=== PATIENT | female | born 1985 | race Hispanic/Latino ===

== ENCOUNTER 2023-12-31 09:38 | Emergency (ER) | payer OTHER, SELFPAY ==
[2023-12-31 10:02] VITALS: BP 115/76; PULSE 67; RESP 18; TEMP 36.4; O2SAT 100; BMI 34.1
--- NOTE | 2023-12-31 12:10 | ED.UPPEXIN ---
HPI - Extremity Injury (Upper) General Chief Complaint: Extremity Injury, Upper Stated Complaint: Left index finger injury Time Seen by Provider: 12/31/23 11:35 Source: patient Mode of arrival: Ambulatory History of Present Illness HPI narrative: 38-year-old female nonsmoker with noncontributory medical history presents with her daughter and a chief complaint of an accidental laceration to the knuckle of her left index finger yesterday. She was using a sharp knife and cutting vinyl morteza when it slipped and cut her knuckle. She cleaned it immediately and was able to briefly control bleeding but it started again prior to her arrival, she wrapped it and came in for further evaluation. She states her tetanus is up-to-date. She denies any numbness, tingling or weakness. She is otherwise well and free of complaint Related Data Allergies Allergy/AdvReac Type Severity Reaction Status Date / Time nickel Allergy Hives Verified 12/31/23 10:06 Review of Systems Review of Systems Narrative: GENERAL: Denies chills, fatigue, malaise, fever, sweats. HEENT: Denies sinus pain, ear pain, sore throat, difficulty swallowing, dizziness. RESPIRATORY: Denies dyspnea, cough, wheezing, hemoptysis, sputum. CARDIOVASCULAR: Denies chest pain, palpitations, orthopnea, edema, GASTROINTESTINAL: Denies nausea, vomiting, abdominal pain, diarrhea, constipation, melena. : Denies dysuria, frequency, incontinence, hematuria, urinary retention. MUSCULOSKELETAL: See HPI SKIN: Denies rash, skin lesions, or other NEUROLOGIC: Denies weakness, headache, numbness, change in speech, confusion, seizures, incoordination. PSYCHIATRIC: No concerning psychosocial issues. 12 point review of systems is negative except for those stated above Patient History Social History Smoking Status: Current every day smoker Smoking Status: Current every day smoker tobacco type: cigarettes Substance Use Type: does not use Exam Narrative Exam Narrative: GEN: AOx3 and in mild distress EYES: Pupils are equal, round, and reactive to light and accommodation. Extraoccular muscles are intact bilaterally. There is no subconjunctival hemorrhage or exudate. CHEST: Lungs are clear to auscultation bilaterally and free of wheezes, rales, or rhonchi. Heart rate is regular rhythm, there are no murmurs, clicks, rubs, or gallops. There is no chest wall tenderness. ABD: Abdomen is soft and nontender. There is no guarding or rebound. Bowel sounds are normal in all 4 quadrants. There is no mass or organomegaly. EXT: Small laceration on dorsal aspect of left index finger over the proximal interphalangeal joint, no active bleeding, even with force I am unable to separate the wound, no indication for repair at this time. Full painless ROM of all extremities with no loss of sensation or strength. SKIN: Warm, pink, and dry. No erythema or rash Initial Vital Signs Initial Vital Signs: Vital Signs Temperature 97.6 F 12/31/23 10:02 Pulse Rate 67 12/31/23 10:02 Respiratory Rate 18 12/31/23 10:02 Blood Pressure 115/76 12/31/23 10:02 Pulse Oximetry 100 12/31/23 10:02 Oxygen Delivery Method Room Air 12/31/23 10:02 Course Vital Signs Vital signs: Vital Signs - 8 hr 12/31/23 10:02 Temperature 97.6 F Pulse Rate 67 Respiratory Rate 18 Blood Pressure 115/76 Pulse Oximetry 100 Oxygen Delivery Method Room Air MDM - Extremity Injury (Upper) MDM Narrative Medical decision making narrative: [38 year old patient presents with 24 hour old laceration to left index finger, bleeding controlled Multiple etiologies for patient's symptoms considered including, but not limited to: [Laceration versus other] Prior Charts reviewed in our EMR Primary Historian: patient Labs not indicated Imaging considered but not indicated Patient received wound care from nursing and was placed in tube gauze. We discussed the utility of digital block with sutures but given that the wound is already healing, no longer bleeding and I am unable to spread the lacerated edges we elected to hold off for now. Findings and discharge diagnosis discussed with patient/family followed by verbalization of understanding Return precautions discussed with patient/family whom verbalize understanding of diagnosis and plan Discharge Plan Departure Patient Disposition: Home Clinical Impression: Laceration of left index finger Qualifiers: Encounter type: initial encounter Damage to nail status: without damage Foreign body presence: without foreign body Qualified Code(s): S61.211A - Laceration without foreign body of left index finger without damage to nail, initial encounter Instructions: DI for Open Laceration Activity Restrictions/Additional Instructions: *You have been diagnosed with [ left index finger laceration] *What to do: *Please continue to take your regular medications as directed. [ ] New medication prescriptions sent to your pharmacy: [ ] [ ] New medication written as a paper prescription [ ] No new medications given *Please follow up with your primary care provider in 2-3 days, call for an appointment. Let them know you were seen in the Emergency Department and that we ask that you be seen in follow up. We will electronically transmit a record of today's note if your PCP is in our system *If you do not have a primary care provider please contact the [facility] Resource line at [phone]. They will ask some questions about your medical history and help get you set up with a doctor in the community. *Return to Emergency Department if you should have any new, worsening or concerning symptoms, such as [fever greater than 101 F, shaking chills, worsening pain, persistent vomiting or other bothersome symptoms] Stand Alone Forms: Patient Portal/API
== END 2023-12-31 12:45 | disposition home or self-care (01) ==
PROVIDERS: Emergency Provider Emergency Medicine
DX: S61.211A Laceration without foreign body of left index finger without damage to nail, initial encounter (principal); W26.0XXA Contact with knife, initial encounter
CPT/HCPCS: 99282

== ENCOUNTER → 2024-06-06 10:02 | Outpatient (CLI) | payer OTHER, SELFPAY | PROVIDERS: Family Provider Nurse Practitioner Family; PCP Nurse Practitioner Family; Visit Provider Urology | DX: R39.9 Unspecified symptoms and signs involving the genitourinary system (principal) | CPT/HCPCS: 87086 ==

== ENCOUNTER 2024-08-06 12:15 | Outpatient (RCR) | payer OTHER, SELFPAY ==
--- NOTE | 2024-05-06 18:38 | PT.OIE ---
Current Diagnoses Pain in right hip (05/06/24) Stiffness of unspecified hip, not elsewhere classified (05/06/24) Overactive bladder (05/06/24) Mixed incontinence (05/06/24) Visit Care Team Role Provider Type ANAM Urias Attending Provider Non-Staff Family Provider Primary Care Provider Referring Provider Specialty: Family Practice Address: [address] [place] [address], [place], [address] Email: Physical Therapy Initial Evaluation PT-OP-A Visit Information Start: 04/30/24 18:31 Freq: Status: Active Protocol: Document 05/06/24 09:47 LRN (Rec: 05/06/24 11:28 LRN [id number]) Out-Patient Physical Therapy Visit Information Visit Information Visit Type Initial Evaluation Visit Start Time 09:47 Visit Stop Time 10:36 Visit Number 1 Evaluation Information Evaluation Date 05/06/24 Precautions Precautions Currently reported to be 11 wk , depression, thyroid disorder. PT-OP-B Current Condition Start: 04/30/24 18:31 Freq: Status: Active Protocol: Document 05/06/24 09:47 LRN (Rec: 05/06/24 11:28 LRN [id number]) Current Condition History of Current Condition Onset Date 12 yrs ago. Current Complaints Overactive ex's and mixed incontinence. History of Current Condition Pt reports currently 11 wks . States she has had diagnosis of overactive bladder for 12 yrs. In was prescribed medicine for UTI, but never told she had and overactvie bladder, so symptoms of UTI never went away. Pt retired from the in 2011. Last year she learned about urology and received treatment from urology clinic that gave her strategies and physical therapy from Aug to September of 2023 in [place] and learned she had mixed urinary incontinence. She moved to [place], [place] in November 2023 with spouse who is in the . She reports being given ex's and handouts, and was taught rocking of body to relax her PF and did biofeedback with pads. States she was given a TNS unit, that was all lost in her move along with all her ex's and handouts. States, if recommended, then she will get a new TNS unit. States she knows her pelvic floor R side was more sensitive than the L side. She has been worried because in the last 2 months she has been waking with dampness and has smell of urine in her underwear. She has urinary leakage with a cough sneeze, sit<>stand, and with a strong urge. She complains of intermittent pain in her R anterior hip. Prior Treatments and Tests Kegel ex's, bridge with Kegels and open wall stretches. Uses pressure points, in lower leg and hand to help control her urinary urges. Developmental History Developmental History 1 daughter - 9 yrs old, vaginal . Treatment Goals Patient/Caregiver Goals Pt goals: - 2 hrs between voids - Decrease urinary leakage Cough, sneeze. - Be able to make it to bathroom with strong urge. - HEP Personal Factors Other Personal Factors That May Effect Chronicity of overactive Therapy/Recovery bladder, Pt reported PTSD, Pt reported 11 wks , Depression, Thyroid disorder. PT-OP-C Subjective Start: 04/30/24 18:31 Freq: Status: Active Protocol: Document 05/06/24 09:47 LRN (Rec: 05/06/24 11:28 LR [id number]) Patient Questionnaires Pelvic Pain and Urgency/Frequency Patient Symptom Scale Pelvic Pain Score 21 OP-PT Pain Assessment Pain Assessment Grid Paper Pain Assessment Grid Completed Yes Location R front of hip Pain Location Details residual cramping after intercourse, with period, intermittent Intensity 4 Scale Used Numeric (0 - 10) Description Aching,Dull Frequency Intermittent Pain Duration Short PT-OP-I Pelvic Floor Start: 04/30/24 18:31 Freq: Status: Active Protocol: Document 05/06/24 09:47 LRN (Rec: 05/06/24 11:28 LRN [id number]) Pelvic Floor Assessment Urine Leakage Cause Cough,Sneeze,Urge Leaks Per Day unknown Voiding Frequency unknown Bowel Bowel Movement Frequency 2-3/day Comments Pelvic Floor Comments Physical assessment of PF not performed due to of 11 weeks. PT-OP-J Posture/Palpation/Skin Start: 04/30/24 18:31 Freq: Status: Active Protocol: Document 05/06/24 09:47 LRN (Rec: 05/06/24 11:28 LRN [id number]) Posture Evaluation Position Standing Head/C-Spine Posture Forward Head L-Spine Posture Increased Lordosis Knee Posture (L) Genu Valgus,(R) Genu Valgus Ankle/Foot Posture (L) Calcaneal Eversion,(R) Calcaneal Eversion Comments Posture Comments Dowagers Hump. PT-OP-K Range of Motion Start: 04/30/24 18:31 Freq: Status: Active Protocol: Document 05/06/24 09:47 LRN (Rec: 05/06/24 11:28 LRN [id number]) Lumbar Spine Range of Motion Lumbar Spine Active Degrees Testing Position Standing Flexion 120 Extension 20 Rotation Left 45 Rotation Right 45 Lateral Flexion Left 25 Lateral Flexion Right 17 ROM Limitations Soft Tissue Tightness Hip Goniometric Range of Motion Hip Right Passive Testing Position Supine Abduction 40 Internal Rotation 35 External Rotation 75 Left Passive Testing Position Supine Abduction 40 Internal Rotation 45 External Rotation 65 PT-OP-M Strength Start: 04/30/24 18:31 Freq: Status: Active Protocol: Document 05/06/24 09:47 LRN (Rec: 05/06/24 11:28 LRN [id number]) Trunk Strength Trunk Manual Muscle Testing Core Stabilization Pt was able to stabilize her core with MMT of hip for flex, AB, AD; therefore core stability is good (minimally 4 /5). Pt demonstarted getting out of bed by a sit-up type motion with use of arms to help push into longsit. Hip Strength Hip Manual Muscle Testing Right Comments Strength is 5/5 except hip ext in prone not assessed due to pt condition. Left Comments Strength is 5/5 except hip ext in prone not assessed due to pt condition. PT-OP-Q Treatments Start: 04/30/24 18:31 Freq: Status: Active Protocol: Document 05/06/24 09:47 LRN (Rec: 05/06/24 11:28 LRN [id number]) Therapeutic Activity Therapeutic Activity Urge suppression trng Name Urge deference technique trn for urge supression in sup, sit,briefly stand. Reps/Minutes 4' Comments Pt needed much cuing to remain calm. Not sure if pt able to deep breath properly. Self-Care/Home Management Treatment Education Other Education Discussed results of evaluation, extended discussion of goals as appropriate for being 11 weeks , treatment, and plan of care (POC) with pt, discussed attendance/cx/dns policy; pt agreeable to evaluation, goals, treatment, attendance/cx/dns policy and POC. Discussed and educated pt in specifics for completion of in use of Bladder Diary and I/S in tracking for 1 week. Activities Self-Care/Home Management Activities Issued & reviewed self care HEP: Urge deference technique . PT-OP-T Assessment and Plan Start: 04/30/24 18:31 Freq: Status: Active Protocol: Document 05/06/24 09:47 LRN (Rec: 05/06/24 11:28 LRN [id number]) Physical Therapy Assessment Rehab Potential Rehabilitation Potential Fair Evaluation Complexity Number of Personal Factors/Comorbidities 0 Impairments Impairments Activity Tolerance Goals Four Impairment Decreased times between voids (voiding every hour or less). Short Term Goal (STG) Pt will be able to increase her fluid intake to decrease need to void frequently. STG Duration 06/28/24 Residential Goal (LTG) Pt will be able to increase time between voids to 2 hrs LTG Duration 08/16/24 Three Impairment Stress urinary incontinence. Short Term Goal (STG) Pt will be educated in PF strengthening with progressing limitations. STG Duration 06/28/24 Needle Loom Weaver Goal (LTG) Improve PF strength to decrease or eliminate urinary leakage with a cough or sneeze . LTG Duration 08/16/24 Two Impairment Urge urinary incontinence Short Term Goal (STG) Pt will be able to perform deep breathing properly for downtraining of sympathetic system with a strong urge. STG Duration 06/07/24 Residential Goal (LTG) Pt will be able to make it to bathroom in the presence of a strong urge. LTG Duration 08/16/24 One Impairment Pt lacks an independent self care HEP. Short Term Goal (STG) Pt educated in proper transfers to lessen core abdominal pressure. STG Duration 06/07/24 Residential Goal (LTG) Pt will be independent in a self care HEP for PF care, PF/ Hip ROM (PF w/gentle reverse Kegel for relaxation after contraction) ROM/strengthening . 05/06/24: Self care HEP: Urge deference technique. LTG Duration 08/16/24 Assessment Summary Assessment Pt is a 38 yo female with 12 yr history of overactive bladder and additionally diagnosed with mixed urinary incontinence in abscence of bowel dysfunction. She presents with decreasd L hip IR/trunk R SB mobility and decreased knowledge of a self care HEP and will need education in behavioral modification to urge and stress on her bladder. With pt 11 weeks , PF exam internally will not be performed due to the pt being 11 wks . Today, with onset of sudden urge, external PF exam was not performed as education of urge delay technique was important to start the pt on a self care activity at home. Further PF assessment will be performed at her next session along with education and training for PF relaxation/contraction as can be performed with manual and self manual feedback. The pt will benefit from skilled physical therapy of pt education, behavior education/ training and coordination of deep breathing and transfers/ exercise, therapeutic ex, transfer training, manual therapy for R lower abdominal pain possibly related to the round ligament, core stab, STM , education in pain mgmt with use of cold pack, and education in positioning (bed, sit, stand). Physical Therapy Plan Frequency and Duration Frequency of Treatment 1x/Week Duration of treatment (weeks) 14 Plan of Care Start Date 05/06/24 Plan of Care End Date 08/16/24 Therapeutic Interventions Therapeutic Interventions Home Exercise Program,Manual Therapy,Neuromuscular Re- education,Self-Care/Home Management,Soft Tissue Mobilization,Therapeutic Activities,Therapeutic Exercises Modalities Cold Pack/Ice Massage Next Visit Focus/Plan Next Note Type Treatment Note Next Visit Plan Next: Further assess urinary leakage, and visual assess of PF. Review bladder/bowel diary, & response to pt education in bladder retraining with urge deference technique. Education: Core pressure management, deep breathing, and proper coordinated breathing with transfers and body mechanics. Ther Ex: Kegel/?Reverse Kegel if PF tightness noted, PF/ core strengthening, improve hip R IR, L ER and trunk R SB mobility. Educate/discuss water intake, educate & discuss proper sit to stand, and moving in bed ( log roll) using breathwork and core/PF stabilization for proper abdominal pressure system, STM (round lig) of abdomen. POC: Pt education , self care management, manual therapy, biofeedback with external sensors (LB/PF), therapeutic exercises, therapeutic activities, and neuromuscular reeducation.
--- NOTE | 2024-05-13 10:45 | PT.OTN ---
Current Diagnoses Pain in right hip (05/13/24) Stiffness of unspecified hip, not elsewhere classified (05/13/24) Overactive bladder (05/13/24) Mixed incontinence (05/13/24) Physical Therapy Treatment Note PT-OP-A Visit Information Start: 04/30/24 18:31 Freq: Status: Active Protocol: Document 05/13/24 09:50 LRN (Rec: 05/13/24 10:34 LRN [id number]) Out-Patient Physical Therapy Visit Information Visit Information Visit Type Treatment Note Visit Start Time 09:50 Visit Stop Time 10:31 Visit Number 2 Evaluation Information Evaluation Date 05/06/24 Precautions Precautions Currently reported to be 11 wk , depression, thyroid disorder. PT-OP-B Current Condition Start: 04/30/24 18:31 Freq: Status: Active Protocol: Document 05/06/24 09:47 LRN (Rec: 05/06/24 11:28 LRN [id number]) Current Condition History of Current Condition Onset Date 12 yrs ago. Current Complaints Overactive ex's and mixed incontinence. History of Current Condition Pt reports currently 11 wks . States she has had diagnosis of overactive bladder for 12 yrs. In was prescribed medicine for UTI, but never told she had and overactvie bladder, so symptoms of UTI never went away. Pt retired from the in 2011. Last year she learned about urology and received treatment from urology clinic that gave her strategies and physical therapy from Aug to September of 2023 in [place], [place] and learned she had mixed urinary incontinence. She moved to [place], [place] in November 2023 with spouse who is in the . She reports being given ex's and handouts, and was taught rocking of body to relax her PF and did biofeedback with pads. States she was given a TNS unit, that was all lost in her move along with all her ex's and handouts. States, if recommended, then she will get a new TNS unit. States she knows her pelvic floor R side was more sensitive than the L side. She has been worried because in the last 2 months she has been waking with dampness and has smell of urine in her underwear. She has urinary leakage with a cough sneeze, sit<>stand, and with a strong urge. She complains of intermittent pain in her R anterior hip. Prior Treatments and Tests Kegel ex's, bridge with Kegels and open wall stretches. Uses pressure points, in lower leg and hand to help control her urinary urges. Developmental History Developmental History 1 daughter - 9 yrs old, vaginal . Treatment Goals Patient/Caregiver Goals Pt goals: - 2 hrs between voids - Decrease urinary leakage Cough, sneeze. - Be able to make it to bathroom with strong urge. - HEP Personal Factors Other Personal Factors That May Effect Chronicity of overactive Therapy/Recovery bladder, Pt reported PTSD, Pt reported 11 wks , Depression, Thyroid disorder. PT-OP-C Subjective Start: 04/30/24 18:31 Freq: Status: Active Protocol: Document 05/13/24 09:50 LRN (Rec: 05/13/24 10:34 LRN [id number]) OP-PT Subjective Patient Comments Patient Comments Found her bladder diary on monday, so only 3 days, couldn 't remember exact instructions . Used urge technique and was a little more successful than previously. At home, and it worked and felt calm and able to hold urine to go upstairs. States did toilet paper at night time on underwear and found she was urinating. PT-OP-I Pelvic Floor Start: 04/30/24 18:31 Freq: Status: Active Protocol: Document 05/06/24 09:47 LRN (Rec: 05/06/24 11:28 LRN [id number]) Pelvic Floor Assessment Urine Leakage Cause Cough,Sneeze,Urge Leaks Per Day unknown Voiding Frequency unknown Bowel Bowel Movement Frequency 2-3/day Comments Pelvic Floor Comments Physical assessment of PF not performed due to of 11 weeks. PT-OP-J Posture/Palpation/Skin Start: 04/30/24 18:31 Freq: Status: Active Protocol: Document 05/06/24 09:47 LRN (Rec: 05/06/24 11:28 LRN [id number]) Posture Evaluation Position Standing Head/C-Spine Posture Forward Head L-Spine Posture Increased Lordosis Knee Posture (L) Genu Valgus,(R) Genu Valgus Ankle/Foot Posture (L) Calcaneal Eversion,(R) Calcaneal Eversion Comments Posture Comments Dowagers Hump. PT-OP-K Range of Motion Start: 04/30/24 18:31 Freq: Status: Active Protocol: Document 05/06/24 09:47 LRN (Rec: 05/06/24 11:28 LRN [id number]) Lumbar Spine Range of Motion Lumbar Spine Active Degrees Testing Position Standing Flexion 120 Extension 20 Rotation Left 45 Rotation Right 45 Lateral Flexion Left 25 Lateral Flexion Right 17 ROM Limitations Soft Tissue Tightness Hip Goniometric Range of Motion Hip Right Passive Testing Position Supine Abduction 40 Internal Rotation 35 External Rotation 75 Left Passive Testing Position Supine Abduction 40 Internal Rotation 45 External Rotation 65 PT-OP-M Strength Start: 04/30/24 18:31 Freq: Status: Active Protocol: Document 05/06/24 09:47 LRN (Rec: 05/06/24 11:28 LRN [id number]) Trunk Strength Trunk Manual Muscle Testing Core Stabilization Pt was able to stabilize her core with MMT of hip for flex, AB, AD; therefore core stability is good (minimally 4 /5). Pt demonstarted getting out of bed by a sit-up type motion with use of arms to help push into longsit. Hip Strength Hip Manual Muscle Testing Right Comments Strength is 5/5 except hip ext in prone not assessed due to pt condition. Left Comments Strength is 5/5 except hip ext in prone not assessed due to pt condition. PT-OP-Q Treatments Start: 04/30/24 18:31 Freq: Status: Active Protocol: Document 05/13/24 09:50 LRN (Rec: 05/13/24 10:34 LRN [id number]) Self-Care/Home Management Treatment Education Other Education Reviewed Bladder dairy and discussed fluid intake (AM/PM) , bowel movement frequency, & nighttime voiding frequency. Reviewed urinary urge technique. Discussed taking more fluid throughout the day and drink first in AM, and her supplements 2 hrs before bedtime. DIscussed at length pt trying to avoid sympathetic system response when going to bathroom with strong urge. Activities Self-Care/Home Management Activities Issued and reviewed handout for foods & beverages bladder diet. Issued handout for deep breathing. PT-OP-T Assessment and Plan Start: 04/30/24 18:31 Freq: Status: Active Protocol: Document 05/13/24 09:50 LRN (Rec: 05/13/24 10:34 LRN [id number]) Physical Therapy Assessment Goals Four Impairment Decreased times between voids (voiding every hour or less). Short Term Goal (STG) Pt will be able to increase her fluid intake to decrease need to void frequently. 05/13/24: Pt voiding every 5 hrs during the day, but 3 times at night; therefore needs to increase fluid intake throughout the day and decrease voiding times during the night. STG Duration 06/28/24 Payroll Manager Goal (LTG) Pt will be able to increase time between voids to 2 hrs. 05/13/24: Pt voiding every 5 hrs in AM; therefore goal not needed. LTG Duration 08/16/24 (05/13/24: Goal not needed). Three Impairment Stress urinary incontinence. Short Term Goal (STG) Pt will be educated in PF strengthening with progressing limitations. STG Duration 06/28/24 Payroll Manager Goal (LTG) Improve PF strength to decrease or eliminate urinary leakage with a cough or sneeze . LTG Duration 08/16/24 Two Impairment Urge urinary incontinence Short Term Goal (STG) Pt will be able to perform deep breathing properly for downtraining of sympathetic system with a strong urge. 05/13/24: HEP Deep breathing handout issued. STG Duration 06/07/24 progressed 05/13/24 Payroll Manager Goal (LTG) Pt will be able to make it to bathroom in the presence of a strong urge. 05/13/24: Pt this past week has made it to bathroom at home w/o leaking, but rushed through undreassing. Not able to make it at grocery store. LTG Duration 08/16/24 05/13/24: Goal partially met, makes it to bathroom in [place] Impairment Pt lacks an independent self care HEP. Short Term Goal (STG) Pt educated in proper transfers to lessen core abdominal pressure. STG Duration 06/07/24 Payroll Manager Goal (LTG) Pt will be independent in a self care HEP for PF care, PF/ Hip ROM (PF w/gentle reverse Kegel for relaxation after contraction) ROM/strengthening . 05/06/24: Self care HEP: Urge deference technique. 05/13/24: HEP: Deep Breathing. LTG Duration 08/16/24 progressed 05/13/24 Assessment Summary Assessment 38 yo female (~12 wks ) is not drinking enough fluids and has increased voiding at night (and she tested that she is urinating at night) and is voiding during the day every 5 hrs due to lack of fluid intake. Use of urge deference technique has helped her to make it to BR at home (not in grocery store), but is still rushed to uncloth when getting to BR. Deep breathing training needed . Physical Therapy Plan Frequency and Duration Frequency of Treatment 1x/Week Duration of treatment (weeks) 14 Plan of Care Start Date 05/06/24 Plan of Care End Date 08/16/24 Next Visit Focus/Plan Next Note Type Treatment Note Next Visit Plan Next: Further assess urinary leakage, and visual assess of PF. Review Deep breathing and train. Education: Core pressure management, deep breathing, and proper coordinated breathing with transfers and body mechanics. Ther Ex: Kegel/?Reverse Kegel if PF tightness noted, PF/ core strengthening, improve hip R IR, L ER and trunk R SB mobility. Educate/discuss water intake, educate & discuss proper sit to stand, and moving in bed ( log roll) using breathwork and core/PF stabilization for proper abdominal pressure system, STM (round lig) of abdomen. POC: Pt education , self care management, manual therapy, biofeedback with external sensors (LB/PF), therapeutic exercises, therapeutic activities, and neuromuscular reeducation.
--- NOTE | 2024-05-20 14:38 | PT.OTN ---
Current Diagnoses Pain in right hip (05/20/24) Stiffness of unspecified hip, not elsewhere classified (05/20/24) Overactive bladder (05/20/24) Mixed incontinence (05/20/24) Physical Therapy Treatment Note PT-OP-A Visit Information Start: 04/30/24 18:31 Freq: Status: Active Protocol: Document 05/20/24 09:48 LRN (Rec: 05/20/24 10:37 LRN [id number]) Out-Patient Physical Therapy Visit Information Visit Information Visit Type Treatment Note Visit Start Time 09:48 Visit Stop Time 10:29 Visit Number 3 Evaluation Information Evaluation Date 05/06/24 Precautions Precautions Currently reported to be 11 wk , depression, thyroid disorder. PT-OP-B Current Condition Start: 04/30/24 18:31 Freq: Status: Active Protocol: Document 05/06/24 09:47 LRN (Rec: 05/06/24 11:28 LRN [id number]) Current Condition History of Current Condition Onset Date 12 yrs ago. Current Complaints Overactive ex's and mixed incontinence. History of Current Condition Pt reports currently 11 wks . States she has had diagnosis of overactive bladder for 12 yrs. In was prescribed medicine for UTI, but never told she had and overactvie bladder, so symptoms of UTI never went away. Pt retired from the in 2011. Last year she learned about urology and received treatment from urology clinic that gave her strategies and physical therapy from Aug to September of 2023 in [place], [place] and learned she had mixed urinary incontinence. She moved to [place], [place] in November 2023 with spouse who is in the . She reports being given ex's and handouts, and was taught rocking of body to relax her PF and did biofeedback with pads. States she was given a TNS unit, that was all lost in her move along with all her ex's and handouts. States, if recommended, then she will get a new TNS unit. States she knows her pelvic floor R side was more sensitive than the L side. She has been worried because in the last 2 months she has been waking with dampness and has smell of urine in her underwear. She has urinary leakage with a cough sneeze, sit<>stand, and with a strong urge. She complains of intermittent pain in her R anterior hip. Prior Treatments and Tests Kegel ex's, bridge with Kegels and open wall stretches. Uses pressure points, in lower leg and hand to help control her urinary urges. Developmental History Developmental History 1 daughter - 9 yrs old, vaginal . Treatment Goals Patient/Caregiver Goals Pt goals: - 2 hrs between voids - Decrease urinary leakage Cough, sneeze. - Be able to make it to bathroom with strong urge. - HEP Personal Factors Other Personal Factors That May Effect Chronicity of overactive Therapy/Recovery bladder, Pt reported PTSD, Pt reported 11 wks , Depression, Thyroid disorder. PT-OP-C Subjective Start: 04/30/24 18:31 Freq: Status: Active Protocol: Document 05/20/24 09:48 LRN (Rec: 05/20/24 10:37 LRN [id number]) OP-PT Subjective Patient Comments Patient Comments States previous therapy in [facility] she was able to contract, but not hold and working on slow releasing after long hold, rather than just dropping. States drinking more during the day, so now sipping during the night. Sweating at night, so more sweat than leakage. PT-OP-I Pelvic Floor Start: 04/30/24 18:31 Freq: Status: Active Protocol: Document 05/06/24 09:47 LRN (Rec: 05/06/24 11:28 LRN [id number]) Pelvic Floor Assessment Urine Leakage Cause Cough,Sneeze,Urge Leaks Per Day unknown Voiding Frequency unknown Bowel Bowel Movement Frequency 2-3/day Comments Pelvic Floor Comments Physical assessment of PF not performed due to of 11 weeks. PT-OP-J Posture/Palpation/Skin Start: 04/30/24 18:31 Freq: Status: Active Protocol: Document 05/06/24 09:47 LRN (Rec: 05/06/24 11:28 LRN [id number]) Posture Evaluation Position Standing Head/C-Spine Posture Forward Head L-Spine Posture Increased Lordosis Knee Posture (L) Genu Valgus,(R) Genu Valgus Ankle/Foot Posture (L) Calcaneal Eversion,(R) Calcaneal Eversion Comments Posture Comments Dowagers Hump. PT-OP-K Range of Motion Start: 04/30/24 18:31 Freq: Status: Active Protocol: Document 05/06/24 09:47 LRN (Rec: 05/06/24 11:28 LRN [id number]) Lumbar Spine Range of Motion Lumbar Spine Active Degrees Testing Position Standing Flexion 120 Extension 20 Rotation Left 45 Rotation Right 45 Lateral Flexion Left 25 Lateral Flexion Right 17 ROM Limitations Soft Tissue Tightness Hip Goniometric Range of Motion Hip Right Passive Testing Position Supine Abduction 40 Internal Rotation 35 External Rotation 75 Left Passive Testing Position Supine Abduction 40 Internal Rotation 45 External Rotation 65 PT-OP-M Strength Start: 04/30/24 18:31 Freq: Status: Active Protocol: Document 05/06/24 09:47 LRN (Rec: 05/06/24 11:28 LRN [id number]) Trunk Strength Trunk Manual Muscle Testing Core Stabilization Pt was able to stabilize her core with MMT of hip for flex, AB, AD; therefore core stability is good (minimally 4 /5). Pt demonstarted getting out of bed by a sit-up type motion with use of arms to help push into longsit. Hip Strength Hip Manual Muscle Testing Right Comments Strength is 5/5 except hip ext in prone not assessed due to pt condition. Left Comments Strength is 5/5 except hip ext in prone not assessed due to pt condition. PT-OP-Q Treatments Start: 04/30/24 18:31 Freq: Status: Active Protocol: Document 05/20/24 09:48 LRN (Rec: 05/20/24 10:37 LRN [id number]) Therapeutic Exercises Supine Exercises Kegel Supine Exercise Name Awareness of Kegel contraction with focus on anterior PF Equipment Used Pillow squeeze Reps/Minutes 19' Comments Much training needed. With pt self feedback > PT feedback > with Pillow sq Deep Breathing Reps/Minutes 10x Comments Cued to hand placement, timing of inhale/exhale and relaxation of body Sitting Exercises Deep Breathing Equipment Used Much extra time needed as pt was not able to have awareness of proper breat Reps/Minutes 8x Comments Cued for arm positioning, hand placment, moving of abdomen over chest Self-Care/Home Management Treatment Education Other Education Reviewed bladder dairy and discussed fluid intake amount with education of pt's 1/2 body wgt in oz's to drink during day and less sipping at night. ............ Activities Self-Care/Home Management Activities Issued & reviewed HEP: Kegels quick and long hold and aggrevators. PT-OP-T Assessment and Plan Start: 04/30/24 18:31 Freq: Status: Active Protocol: Document 05/20/24 09:48 LRN (Rec: 05/20/24 10:37 LRN [id number]) Physical Therapy Assessment Goals Four Impairment Decreased times between voids (voiding every hour or less). Short Term Goal (STG) Pt will be able to increase her fluid intake to decrease need to void frequently. 05/13/24: Pt voiding every 5 hrs during the day, but 3 times at night; therefore needs to increase fluid intake throughout the day and decrease voiding times during the night. STG Duration 06/28/24 Residential Goal (LTG) Pt will be able to increase time between voids to 2 hrs. 05/13/24: Pt voiding every 5 hrs in AM; therefore goal not needed. LTG Duration 08/16/24 (05/13/24: Goal not needed). Three Impairment Stress urinary incontinence. Short Term Goal (STG) Pt will be educated in PF strengthening with progressing limitations. 05/20/24: HEP: Kegels: Quick , Long Hold, Aggrevator. STG Duration 06/28/24 Residential Goal (LTG) Improve PF strength to decrease or eliminate urinary leakage with a cough or sneeze . LTG Duration 08/16/24 Two Impairment Urge urinary incontinence Short Term Goal (STG) Pt will be able to perform deep breathing properly for downtraining of sympathetic system with a strong urge. 05/13/24: HEP Deep breathing handout issued. 05/20/24: Pt able to perform properly in supine. STG Duration 06/07/24 progressed 05/20/24 (need to do sitting) Residential Goal (LTG) Pt will be able to make it to bathroom in the presence of a strong urge. 05/13/24: Pt this past week has made it to bathroom at home w/o leaking, but rushed through undreassing. Not able to make it at grocery store. LTG Duration 08/16/24 05/13/24: Goal partially met, makes it to bathroom in [place] Impairment Pt lacks an independent self care HEP. Short Term Goal (STG) Pt educated in proper transfers to lessen core abdominal pressure. STG Duration 06/07/24 Residential Goal (LTG) Pt will be independent in a self care HEP for PF care, PF/ Hip ROM (PF w/gentle reverse Kegel for relaxation after contraction) ROM/strengthening . 05/06/24: Self care HEP: Urge deference technique. 05/13/24: HEP: Deep Breathing. 05/20/24: HEP: Kegels: Quick , Long Hold, Aggrevator. LTG Duration 08/16/24 progressed 05/20/24 Assessment Summary Assessment Pt's PF rehab at [facility] was before and she was being taught how to slowly release after a long hold contraction, and told her R sidewall was weaker and more painful than left. Today pt demonstrated good deep breathing in supine, but had a harder time sitting (moved through chest and abdomen). After much training she was able to perform a weak palpable anterior PF contraction if done with pillow squeeze. Pt feels she is eli her PF, but was not actually doing a palpable contraction. Further strengthening is needed. This past week she feels her wettness at night has been due to sweat, not urinary leakage . Physical Therapy Plan Frequency and Duration Frequency of Treatment 1x/Week Duration of treatment (weeks) 14 Plan of Care Start Date 05/06/24 Plan of Care End Date 08/16/24 Next Visit Focus/Plan Next Note Type Treatment Note Next Visit Plan Monitor nighttime ?sweat vs urinary leakage. Next: visual assess of PF, and assess if pt able to actually do a PF contraction or if she just feels she is doing one. Train Deep breathing in sitting. Education: Core pressure management, deep breathing, and proper coordinated breathing with transfers and body mechanics. Ther Ex: Kegel/?Reverse Kegel if PF tightness noted, PF/ core strengthening, improve hip R IR, L ER and trunk R SB mobility. Educate/discuss water intake, educate & discuss proper sit to stand, and moving in bed ( log roll) using breathwork and core/PF stabilization for proper abdominal pressure system, STM (round lig) of abdomen. POC: Pt education , self care management, manual therapy, biofeedback with external sensors (LB/PF), therapeutic exercises, therapeutic activities, and neuromuscular reeducation.
--- NOTE | 2024-06-10 17:43 | PT.OTN ---
Current Diagnoses Pain in right hip (06/10/24) Stiffness of unspecified hip, not elsewhere classified (06/10/24) Overactive bladder (06/10/24) Mixed incontinence (06/10/24) Physical Therapy Treatment Note PT-OP-A Visit Information Start: 04/30/24 18:31 Freq: Status: Active Protocol: Document 06/10/24 09:51 LRN (Rec: 06/10/24 10:46 LRN [id number]) Out-Patient Physical Therapy Visit Information Visit Information Visit Type Treatment Note Visit Start Time 09:51 Visit Stop Time 10:39 Visit Number 4 Evaluation Information Evaluation Date 05/06/24 Precautions Precautions Currently reported to be 11 wk , depression, thyroid disorder. PT-OP-B Current Condition Start: 04/30/24 18:31 Freq: Status: Active Protocol: Document 05/06/24 09:47 LRN (Rec: 05/06/24 11:28 LRN [id number]) Current Condition History of Current Condition Onset Date 12 yrs ago. Current Complaints Overactive ex's and mixed incontinence. History of Current Condition Pt reports currently 11 wks . States she has had diagnosis of overactive bladder for 12 yrs. In was prescribed medicine for UTI, but never told she had and overactvie bladder, so symptoms of UTI never went away. Pt retired from the in 2011. Last year she learned about urology and received treatment from urology clinic that gave her strategies and physical therapy from Aug to September of 2023 in [place], [place] and learned she had mixed urinary incontinence. She moved to [place], [place] in November 2023 with spouse who is in the . She reports being given ex's and handouts, and was taught rocking of body to relax her PF and did biofeedback with pads. States she was given a TNS unit, that was all lost in her move along with all her ex's and handouts. States, if recommended, then she will get a new TNS unit. States she knows her pelvic floor R side was more sensitive than the L side. She has been worried because in the last 2 months she has been waking with dampness and has smell of urine in her underwear. She has urinary leakage with a cough sneeze, sit<>stand, and with a strong urge. She complains of intermittent pain in her R anterior hip. Prior Treatments and Tests Kegel ex's, bridge with Kegels and open wall stretches. Uses pressure points, in lower leg and hand to help control her urinary urges. Developmental History Developmental History 1 daughter - 9 yrs old, vaginal . Treatment Goals Patient/Caregiver Goals Pt goals: - 2 hrs between voids - Decrease urinary leakage Cough, sneeze. - Be able to make it to bathroom with strong urge. - HEP Personal Factors Other Personal Factors That May Effect Chronicity of overactive Therapy/Recovery bladder, Pt reported PTSD, Pt reported 11 wks , Depression, Thyroid disorder. PT-OP-C Subjective Start: 04/30/24 18:31 Freq: Status: Active Protocol: Document 06/10/24 09:51 LRN (Rec: 06/10/24 10:46 LRN [id number]) OP-PT Subjective Patient Comments Patient Comments Tired because baby is waking her every [address] Cat at urology and said there was nothing he could do because of , so can't figure out bladder situation. Thinks she has a combination of sweat and urine w/nighttime leaking, not happening every night. Has increased her water intake with a little salt. PT-OP-I Pelvic Floor Start: 04/30/24 18:31 Freq: Status: Active Protocol: Document 05/06/24 09:47 LRN (Rec: 05/06/24 11:28 LRN [id number]) Pelvic Floor Assessment Urine Leakage Cause Cough,Sneeze,Urge Leaks Per Day unknown Voiding Frequency unknown Bowel Bowel Movement Frequency 2-3/day Comments Pelvic Floor Comments Physical assessment of PF not performed due to of 11 weeks. PT-OP-J Posture/Palpation/Skin Start: 04/30/24 18:31 Freq: Status: Active Protocol: Document 05/06/24 09:47 LRN (Rec: 05/06/24 11:28 LRN [id number]) Posture Evaluation Position Standing Head/C-Spine Posture Forward Head L-Spine Posture Increased Lordosis Knee Posture (L) Genu Valgus,(R) Genu Valgus Ankle/Foot Posture (L) Calcaneal Eversion,(R) Calcaneal Eversion Comments Posture Comments Dowagers Hump. PT-OP-K Range of Motion Start: 04/30/24 18:31 Freq: Status: Active Protocol: Document 05/06/24 09:47 LRN (Rec: 05/06/24 11:28 LRN [id number]) Lumbar Spine Range of Motion Lumbar Spine Active Degrees Testing Position Standing Flexion 120 Extension 20 Rotation Left 45 Rotation Right 45 Lateral Flexion Left 25 Lateral Flexion Right 17 ROM Limitations Soft Tissue Tightness Hip Goniometric Range of Motion Hip Right Passive Testing Position Supine Abduction 40 Internal Rotation 35 External Rotation 75 Left Passive Testing Position Supine Abduction 40 Internal Rotation 45 External Rotation 65 PT-OP-M Strength Start: 04/30/24 18:31 Freq: Status: Active Protocol: Document 05/06/24 09:47 LRN (Rec: 05/06/24 11:28 LRN [id number]) Trunk Strength Trunk Manual Muscle Testing Core Stabilization Pt was able to stabilize her core with MMT of hip for flex, AB, AD; therefore core stability is good (minimally 4 /5). Pt demonstarted getting out of bed by a sit-up type motion with use of arms to help push into longsit. Hip Strength Hip Manual Muscle Testing Right Comments Strength is 5/5 except hip ext in prone not assessed due to pt condition. Left Comments Strength is 5/5 except hip ext in prone not assessed due to pt condition. PT-OP-Q Treatments Start: 04/30/24 18:31 Freq: Status: Active Protocol: Document 06/10/24 09:51 LRN (Rec: 06/10/24 10:46 LRN [id number]) Therapeutic Exercises Sitting Exercises Quick Contractions Sitting Exercise Name Contract/Relax Reps/Minutes 5' x 2 Comments Pt used breathwork of exhale contract/inhale release. Deep Breathing Equipment Used Much extra time needed as pt was not able to have awareness of proper breat Reps/Minutes 8' Comments Cued to keep chest still w/ hand placement practice on chest 1 side @ a time Other Exercises Urge deference training in semi-4pt Other Exercise Name Urge deference training w/pt going to bathroom. Reps/Minutes 7' Comments pt last void was 2.5 hrs ago. Semi 4 pt Other Exercise Name 4pt on forearms for contraction > Child's pose w/ knees out for PF relaxatio Reps/Minutes 2 SH/2 SR - 8x, 5x, with rest inbetween. Comments Pt then had urge to urinate. Child's Pose Other Exercise Name Legs together Reps/Minutes 10 SH x 6 Comments Cued for back stretch, pt felt in L upper back Therapeutic Activity Therapeutic Activity Transfer training w/breath Name Core pressure mgmt training. Reps/Minutes 8' Comments Core pressure management with proper coordinated breathing with transfers and body mechanics. Urge suppression trng Name Urge suppression training Reps/Minutes 2x Comments before voiding and at end of treatment w/handout issued. Self-Care/Home Management Treatment Education Other Education Pt education in proper body mechanics with use of breath for core pressure management. Activities Self-Care/Home Management Activities Issue & reviewed (see above) Handouts: ADL body mechanics Issued handout for Bladder Retraining (see Urge suppression training above). PT-OP-T Assessment and Plan Start: 04/30/24 18:31 Freq: Status: Active Protocol: Document 06/10/24 09:51 LRN (Rec: 06/10/24 10:46 LRN [id number]) Physical Therapy Assessment Goals Four Impairment Decreased times between voids (voiding every hour or less). Short Term Goal (STG) Pt will be able to increase her fluid intake to decrease need to void frequently. 05/13/24: Pt voiding every 5 hrs during the day, but 3 times at night; therefore needs to increase fluid intake throughout the day and decrease voiding times during the night. STG Duration 06/28/24 Prison Goal (LTG) Pt will be able to increase time between voids to 2 hrs. 05/13/24: Pt voiding every 5 hrs in AM; therefore goal not needed. 06/10/24: Educated pt in Bladder retraining urge deference technique, needs review. LTG Duration 08/16/24 (05/13/24: Goal not needed). Three Impairment Stress urinary incontinence. Short Term Goal (STG) Pt will be educated in PF strengthening with progressing limitations. 05/20/24: HEP: Kegels: Quick , Long Hold, Aggrevator. STG Duration 06/28/24 Prison Goal (LTG) Improve PF strength to decrease or eliminate urinary leakage with a cough or sneeze . LTG Duration 08/16/24 Two Impairment Urge urinary incontinence Short Term Goal (STG) Pt will be able to perform deep breathing properly for downtraining of sympathetic system with a strong urge. 05/13/24: HEP Deep breathing handout issued. 05/20/24: Pt able to perform properly in supine. 06/10/24: Sitting, pt demonstrates good abdominal mvmt to start, then upper chest maximally kicks in. STG Duration 06/07/24 progressed 05/20/24 (need to do sitting) Prison Goal (LTG) Pt will be able to make it to bathroom in the presence of a strong urge. 05/13/24: Pt this past week has made it to bathroom at home w/o leaking, but rushed through undreassing. Not able to make it at grocery store. LTG Duration 08/16/24 05/13/24: Goal partially met, makes it to bathroom in [place] One Impairment Pt lacks an independent self care HEP. Short Term Goal (STG) Pt educated in proper transfers to lessen core abdominal pressure. 06/10/24: Pt educated in transfers to lessen core pressure. STG Duration 06/07/24 (06/10/24: MET GOAL) Guest Relations Executive Goal (LTG) Pt will be independent in a self care HEP for PF care, PF/ Hip ROM (PF w/gentle reverse Kegel for relaxation after contraction) ROM/strengthening . 05/06/24: Self care HEP: Urge deference technique. 05/13/24: HEP: Deep Breathing. 05/20/24: HEP: Kegels: Quick , Long Hold, Aggrevator. 06/10/24: Handouts: Bladder Retraining & Body mechanics training. LTG Duration 08/16/24 progressed 06/10/24 Assessment Summary Assessment 38 yo female (~16 wks ) with 12 yr history of overactive bladder and additionally diagnosed with mixed urinary incontinence in abscence of bowel dysfunction; decreasd L hip IR/trunk R SB mobility. She reports urinary urgency, probably due to poor fluid intake routine during the day (decreased daytime voiding), and increased frequency of nighttime voiding . Pt is drinking more fluids, adding salt because she thinks she is using less salt with cooking, noting her family feels food tastes less salty. Pt could still benefit from behavior modification education/ training, coordination of deep breathing and transfers/ exercise, therapeutic ex, manual therapy for R lower abdominal pain possibly related to the round ligament, core stab, STM, education in pain mgmt with use of cold pack, and education in positioning (bed, sit, stand). Physical Therapy Plan Frequency and Duration Frequency of Treatment 1x/Week Duration of treatment (weeks) 14 Plan of Care Start Date 05/06/24 Plan of Care End Date 08/16/24 Next Visit Focus/Plan Next Note Type Treatment Note Next Visit Plan Next: Review bladder retraining and ADL mechanics handout, Discuss and Issue handout for core pressure mgmt with transfers, and end with visual assess of PF, and assess if pt able to actually do a PF contraction or if she just feels she is doing one. Ther Ex: Kegel/?Reverse Kegel if PF tightness noted, PF/ core strengthening, improve hip R IR, L ER and trunk R SB mobility. Educate/discuss water intake, educate & discuss proper sit to stand, and moving in bed ( log roll) using breathwork and core/PF stabilization for proper abdominal pressure system, STM (round lig) of abdomen. POC: Pt education , self care management, manual therapy, biofeedback with external sensors (LB/PF), therapeutic exercises, therapeutic activities, and neuromuscular reeducation.
--- NOTE | 2024-07-11 11:51 | PT.OTN ---
Current Diagnoses Pain in right hip (07/11/24) Stiffness of unspecified hip, not elsewhere classified (07/11/24) Overactive bladder (07/11/24) Mixed incontinence (07/11/24) Physical Therapy Treatment Note PT-OP-A Visit Information Start: 04/30/24 18:31 Freq: Status: Active Protocol: Document 07/11/24 10:48 LRN (Rec: 07/11/24 11:50 LRN [id number]) Out-Patient Physical Therapy Visit Information Visit Information Visit Type Treatment Note Visit Start Time 10:48 Visit Stop Time 11:32 Visit Number 5 Evaluation Information Evaluation Date 05/06/24 Precautions Precautions Currently reported to be 11 wk , depression, thyroid disorder. Difficult lying on back. PT-OP-B Current Condition Start: 04/30/24 18:31 Freq: Status: Active Protocol: Document 05/06/24 09:47 LRN (Rec: 05/06/24 11:28 LRN [id number]) Current Condition History of Current Condition Onset Date 12 yrs ago. Current Complaints Overactive ex's and mixed incontinence. History of Current Condition Pt reports currently 11 wks . States she has had diagnosis of overactive bladder for 12 yrs. In was prescribed medicine for UTI, but never told she had and overactvie bladder, so symptoms of UTI never went away. Pt retired from the in 2011. Last year she learned about urology and received treatment from urology clinic that gave her strategies and physical therapy from Aug to September of 2023 in [place], [place] and learned she had mixed urinary incontinence. She moved to [place], [place] in November 2023 with spouse who is in the . She reports being given ex's and handouts, and was taught rocking of body to relax her PF and did biofeedback with pads. States she was given a TNS unit, that was all lost in her move along with all her ex's and handouts. States, if recommended, then she will get a new TNS unit. States she knows her pelvic floor R side was more sensitive than the L side. She has been worried because in the last 2 months she has been waking with dampness and has smell of urine in her underwear. She has urinary leakage with a cough sneeze, sit<>stand, and with a strong urge. She complains of intermittent pain in her R anterior hip. Prior Treatments and Tests Kegel ex's, bridge with Kegels and open wall stretches. Uses pressure points, in lower leg and hand to help control her urinary urges. Developmental History Developmental History 1 daughter - 9 yrs old, vaginal . Treatment Goals Patient/Caregiver Goals Pt goals: - 2 hrs between voids - Decrease urinary leakage Cough, sneeze. - Be able to make it to bathroom with strong urge. - HEP Personal Factors Other Personal Factors That May Effect Chronicity of overactive Therapy/Recovery bladder, Pt reported PTSD, Pt reported 11 wks , Depression, Thyroid disorder. PT-OP-C Subjective Start: 04/30/24 18:31 Freq: Status: Active Protocol: Document 07/11/24 10:48 LRN (Rec: 07/11/24 11:50 LRN [id number]) OP-PT Subjective Patient Comments Patient Comments No changes. Had huge panic attack and she is trying to get back her breathing rhythm. She now knows when she hasn' t had enough water and drinking more. Hasn't been getting up during the night. States she has had 1 urinary incontinence because was distracted, and can now cough or sneeze w/o leaking if does Kegel first. PT-OP-I Pelvic Floor Start: 04/30/24 18:31 Freq: Status: Active Protocol: Document 05/06/24 09:47 LRN (Rec: 05/06/24 11:28 LRN [id number]) Pelvic Floor Assessment Urine Leakage Cause Cough,Sneeze,Urge Leaks Per Day unknown Voiding Frequency unknown Bowel Bowel Movement Frequency 2-3/day Comments Pelvic Floor Comments Physical assessment of PF not performed due to of 11 weeks. PT-OP-J Posture/Palpation/Skin Start: 04/30/24 18:31 Freq: Status: Active Protocol: Document 05/06/24 09:47 LRN (Rec: 05/06/24 11:28 LRN [id number]) Posture Evaluation Position Standing Head/C-Spine Posture Forward Head L-Spine Posture Increased Lordosis Knee Posture (L) Genu Valgus,(R) Genu Valgus Ankle/Foot Posture (L) Calcaneal Eversion,(R) Calcaneal Eversion Comments Posture Comments Dowagers Hump. PT-OP-K Range of Motion Start: 04/30/24 18:31 Freq: Status: Active Protocol: Document 05/06/24 09:47 LRN (Rec: 05/06/24 11:28 LRN [id number]) Lumbar Spine Range of Motion Lumbar Spine Active Degrees Testing Position Standing Flexion 120 Extension 20 Rotation Left 45 Rotation Right 45 Lateral Flexion Left 25 Lateral Flexion Right 17 ROM Limitations Soft Tissue Tightness Hip Goniometric Range of Motion Hip Right Passive Testing Position Supine Abduction 40 Internal Rotation 35 External Rotation 75 Left Passive Testing Position Supine Abduction 40 Internal Rotation 45 External Rotation 65 PT-OP-M Strength Start: 04/30/24 18:31 Freq: Status: Active Protocol: Document 05/06/24 09:47 LRN (Rec: 05/06/24 11:28 LRN [id number]) Trunk Strength Trunk Manual Muscle Testing Core Stabilization Pt was able to stabilize her core with MMT of hip for flex, AB, AD; therefore core stability is good (minimally 4 /5). Pt demonstarted getting out of bed by a sit-up type motion with use of arms to help push into longsit. Hip Strength Hip Manual Muscle Testing Right Comments Strength is 5/5 except hip ext in prone not assessed due to pt condition. Left Comments Strength is 5/5 except hip ext in prone not assessed due to pt condition. PT-OP-Q Treatments Start: 04/30/24 18:31 Freq: Status: Active Protocol: Document 07/11/24 10:48 LRN (Rec: 07/11/24 11:50 LRN [id number]) Therapeutic Exercises Sidelying Exercises Kegel/Reverse Clamshell Sidelying Exercise Name Quick & Long Hold Side bilateral Reps/Minutes 1 SH/2 SR x 10 & 10 SH/20 SR ( clamshell) x 3 Comments Pt needed cuing throughout ex. Clamshell Reps/Minutes 10x (5 sets), btn each Kegel w /transfers Therapeutic Activity Therapeutic Activity Transfer training w/breath Name Core pressure mgmt training with sit>stand>sit>sup>sit> stand. Reps/Minutes 8' Comments Core pressure management with proper coordinated breathing with transfers and body mechanics. Urge suppression trng Name Urge suppression training with urge Reps/Minutes 1x Comments Performed with pt urge, before voiding, reviewed process before and identified process afterward. Pt now able to calmly enter barand use bathroom Self-Care/Home Management Treatment Education Other Education Brief review of proper body mechanics with lifting, reaching fwd & overhead. Pt reporting she is doing Kegels w/body mechanics and trying to breathe with proper body mechanics. Activities Self-Care/Home Management Activities Discussed treatment, and plan of care (POC) as pt was concerned of saving her insurance visits for post- time in December. Pt to contact her I/S to see what visits will be available in 2024 for post- rehab. PT-OP-T Assessment and Plan Start: 04/30/24 18:31 Freq: Status: Active Protocol: Document 07/11/24 10:48 LRN (Rec: 07/11/24 11:50 LRN [id number]) Physical Therapy Assessment Goals Four Impairment Decreased times between voids (voiding every hour or less). Short Term Goal (STG) Pt will be able to increase her fluid intake to decrease need to void frequently. 05/13/24: Pt voiding every 5 hrs during the day, but 3 times at night; therefore needs to increase fluid intake throughout the day and decrease voiding times during the night. STG Duration 06/28/24 (07/11/24: MET GOAL) Jail Goal (LTG) Pt will be able to increase time between voids to 2 hrs. 05/13/24: Pt voiding every 5 hrs in AM; therefore goal not needed. 06/10/24: Educated pt in Bladder retraining urge deference technique, needs review. 07/11/24: Pt not tracking times between voids) LTG Duration 08/16/24 (05/13/24: Goal not needed). Three Impairment Stress urinary incontinence. Short Term Goal (STG) Pt will be educated in PF strengthening with progressing limitations. 05/20/24: HEP: Kegels: Quick , Long Hold, Aggrevator. STG Duration 06/28/24 Jail Goal (LTG) Improve PF strength to decrease or eliminate urinary leakage with a cough or sneeze . LTG Duration 08/16/24 Two Impairment Urge urinary incontinence Short Term Goal (STG) Pt will be able to perform deep breathing properly for downtraining of sympathetic system with a strong urge. 05/13/24: HEP Deep breathing handout issued. 05/20/24: Pt able to perform properly in supine. 06/10/24: Sitting, pt demonstrates good abdominal mvmt to start, then upper chest maximally kicks in. STG Duration 06/07/24 progressed 05/20/24 (need to do sitting) Coffee Break Attendant Goal (LTG) Pt will be able to make it to bathroom in the presence of a strong urge. 05/13/24: Pt this past week has made it to bathroom at home w/o leaking, but rushed through undreassing. Not able to make it at grocery store. LTG Duration 08/16/24 05/13/24: Goal partially met, makes it to bathroom in [place] One Impairment Pt lacks an independent self care HEP. Short Term Goal (STG) Pt educated in proper transfers to lessen core abdominal pressure. 06/10/24: Pt educated in transfers to lessen core pressure. STG Duration 06/07/24 (06/10/24: MET GOAL) Jail Goal (LTG) Pt will be independent in a self care HEP for PF care, PF/ Hip ROM (PF w/gentle reverse Kegel for relaxation after contraction) ROM/strengthening . 05/06/24: Self care HEP: Urge deference technique. 05/13/24: HEP: Deep Breathing. 05/20/24: HEP: Kegels: Quick , Long Hold, Aggrevator. 06/10/24: Handouts: Bladder Retraining & Body mechanics training. LTG Duration 08/16/24 progressed 06/10/24 Assessment Summary Assessment 38 yo female (~21 wks ) with 12 yr history of overactive bladder and additionally diagnosed with mixed urinary incontinence in abscence of bowel dysfunction; with decreasd L hip IR/trunk R SB mobility. Today she is able to demonstrate proper deep breathing in sitting. She has been sleeping throught the night (not urinating) as she is adding more fluids to her day. Physical Therapy Plan Frequency and Duration Frequency of Treatment 1x/Week Duration of treatment (weeks) 14 Plan of Care Start Date 05/06/24 Plan of Care End Date 08/16/24 Next Visit Focus/Plan Next Note Type Treatment Note Next Visit Plan Next: Visual assess of PF, and assess if pt able to actually do a PF contraction or if she just feels she is doing one. If too tight, add Reverse Kegel. Ther Ex: Cont Kegel/?Reverse Kegel, PF/core strengthening, improve hip R IR, L ER and trunk R SB mobility. Educate/discuss proper sit to stand, and review moving in bed (log roll) using breathwork and core/PF stabilization (for proper abdominal pressure system), pain mgmt (cold pack) & positioning (bed, sit, stand). Manual: R lower abdominal pain possibly related to the round ligament. POC: Pt education , self care management, manual therapy, biofeedback with external sensors (LB/PF), therapeutic exercises, therapeutic activities, and neuromuscular reeducation.
--- NOTE | 2024-07-30 10:41 | PT.OTN ---
Current Diagnoses Pain in right hip (07/30/24) Stiffness of unspecified hip, not elsewhere classified (07/30/24) Overactive bladder (07/30/24) Mixed incontinence (07/30/24) Physical Therapy Treatment Note PT-OP-A Visit Information Start: 04/30/24 18:31 Freq: Status: Active Protocol: Document 07/30/24 09:49 LRN (Rec: 07/30/24 10:40 LRN [id number]) Out-Patient Physical Therapy Visit Information Visit Information Visit Type Treatment Note Visit Start Time 09:49 Visit Stop Time 10:30 Visit Number 6 Evaluation Information Evaluation Date 05/06/24 Precautions Precautions Currently reported to be 11 wk , depression, thyroid disorder. Difficult lying on back. PT-OP-B Current Condition Start: 04/30/24 18:31 Freq: Status: Active Protocol: Document 05/06/24 09:47 LRN (Rec: 05/06/24 11:28 LRN [id number]) Current Condition History of Current Condition Onset Date 12 yrs ago. Current Complaints Overactive ex's and mixed incontinence. History of Current Condition Pt reports currently 11 wks . States she has had diagnosis of overactive bladder for 12 yrs. In was prescribed medicine for UTI, but never told she had and overactvie bladder, so symptoms of UTI never went away. Pt retired from the in 2011. Last year she learned about urology and received treatment from urology clinic that gave her strategies and physical therapy from Aug to September of 2023 in [place], [place] and learned she had mixed urinary incontinence. She moved to [place], [place] in November 2023 with spouse who is in the . She reports being given ex's and handouts, and was taught rocking of body to relax her PF and did biofeedback with pads. States she was given a TNS unit, that was all lost in her move along with all her ex's and handouts. States, if recommended, then she will get a new TNS unit. States she knows her pelvic floor R side was more sensitive than the L side. She has been worried because in the last 2 months she has been waking with dampness and has smell of urine in her underwear. She has urinary leakage with a cough sneeze, sit<>stand, and with a strong urge. She complains of intermittent pain in her R anterior hip. Prior Treatments and Tests Kegel ex's, bridge with Kegels and open wall stretches. Uses pressure points, in lower leg and hand to help control her urinary urges. Developmental History Developmental History 1 daughter - 9 yrs old, vaginal . Treatment Goals Patient/Caregiver Goals Pt goals: - 2 hrs between voids - Decrease urinary leakage Cough, sneeze. - Be able to make it to bathroom with strong urge. - HEP Personal Factors Other Personal Factors That May Effect Chronicity of overactive Therapy/Recovery bladder, Pt reported PTSD, Pt reported 11 wks , Depression, Thyroid disorder. PT-OP-C Subjective Start: 04/30/24 18:31 Freq: Status: Active Protocol: Document 07/30/24 09:49 LRN (Rec: 07/30/24 10:40 LRN [id number]) OP-PT Subjective Patient Comments Patient Comments No changes to urgency. Going to bathroom more often. Able to hold urine with urgency. Pain in LB is constant at 3-4/ 10. PT-OP-I Pelvic Floor Start: 04/30/24 18:31 Freq: Status: Active Protocol: Document 05/06/24 09:47 LRN (Rec: 05/06/24 11:28 LRN [id number]) Pelvic Floor Assessment Urine Leakage Cause Cough,Sneeze,Urge Leaks Per Day unknown Voiding Frequency unknown Bowel Bowel Movement Frequency 2-3/day Comments Pelvic Floor Comments Physical assessment of PF not performed due to of 11 weeks. PT-OP-J Posture/Palpation/Skin Start: 04/30/24 18:31 Freq: Status: Active Protocol: Document 05/06/24 09:47 LRN (Rec: 05/06/24 11:28 LRN [id number]) Posture Evaluation Position Standing Head/C-Spine Posture Forward Head L-Spine Posture Increased Lordosis Knee Posture (L) Genu Valgus,(R) Genu Valgus Ankle/Foot Posture (L) Calcaneal Eversion,(R) Calcaneal Eversion Comments Posture Comments Dowagers Hump. PT-OP-K Range of Motion Start: 04/30/24 18:31 Freq: Status: Active Protocol: Document 05/06/24 09:47 LRN (Rec: 05/06/24 11:28 LRN [id number]) Lumbar Spine Range of Motion Lumbar Spine Active Degrees Testing Position Standing Flexion 120 Extension 20 Rotation Left 45 Rotation Right 45 Lateral Flexion Left 25 Lateral Flexion Right 17 ROM Limitations Soft Tissue Tightness Hip Goniometric Range of Motion Hip Right Passive Testing Position Supine Abduction 40 Internal Rotation 35 External Rotation 75 Left Passive Testing Position Supine Abduction 40 Internal Rotation 45 External Rotation 65 PT-OP-M Strength Start: 04/30/24 18:31 Freq: Status: Active Protocol: Document 05/06/24 09:47 LRN (Rec: 05/06/24 11:28 LRN [id number]) Trunk Strength Trunk Manual Muscle Testing Core Stabilization Pt was able to stabilize her core with MMT of hip for flex, AB, AD; therefore core stability is good (minimally 4 /5). Pt demonstarted getting out of bed by a sit-up type motion with use of arms to help push into longsit. Hip Strength Hip Manual Muscle Testing Right Comments Strength is 5/5 except hip ext in prone not assessed due to pt condition. Left Comments Strength is 5/5 except hip ext in prone not assessed due to pt condition. PT-OP-Q Treatments Start: 04/30/24 18:31 Freq: Status: Active Protocol: Document 07/30/24 09:49 LRN (Rec: 07/30/24 10:40 LRN [id number]) Therapeutic Exercises Sidelying Exercises TA tightening/Kegel Sidelying Exercise Name Long hold Kegels w/TA hold Side bilateral Reps/Minutes 10 SH (3 breaths) x 10, 2 sets Comments Cued to alternate Kegel and rest time, and for breathing. Kegel/Reverse Clamshell Sidelying Exercise Name Quick Kegel w/Reverse Clam Side bilateral Reps/Minutes 10x each Comments Cued to exhale with lift Clamshell Sidelying Exercise Name Quick Kegel w/Clamshell Side bilateral Reps/Minutes 10x each Comments Cued to exhale with lift Other Exercises Wag the Tail Reps/Minutes 2' Comments Extra time taken for positioning Child's Pose Other Exercise Name Rock Back Reps/Minutes 3' Comments Extra time taken for positioning Manual Therapy Treatment Soft Tissue Mobilization Low Back Body Location Low Back Mobilization Type Strumming Intensity/Depth Moderate Body Position On preg pillow Self-Care/Home Management Treatment Education Other Education Discussed with pt pain mgmt of cold pack for pain, and not to use TNS for pain. PT-OP-T Assessment and Plan Start: 04/30/24 18:31 Freq: Status: Active Protocol: Document 07/30/24 09:49 LRN (Rec: 07/30/24 10:40 LRN [id number]) Physical Therapy Assessment Goals Four Impairment Decreased times between voids (voiding every hour or less). Short Term Goal (STG) Pt will be able to increase her fluid intake to decrease need to void frequently. 05/13/24: Pt voiding every 5 hrs during the day, but 3 times at night; therefore needs to increase fluid intake throughout the day and decrease voiding times during the night. STG Duration 06/28/24 (07/11/24: MET GOAL) Airport Representative Goal (LTG) Pt will be able to increase time between voids to 2 hrs. 05/13/24: Pt voiding every 5 hrs in AM; therefore goal not needed. 06/10/24: Educated pt in Bladder retraining urge deference technique, needs review. 07/11/24: Pt not tracking times between voids) LTG Duration 08/16/24 (05/13/24: Goal not needed). Three Impairment Stress urinary incontinence. Short Term Goal (STG) Pt will be educated in PF strengthening with progressing limitations. 05/20/24: HEP: Kegels: Quick , Long Hold, Aggrevator. 07/30/24: HEP: Kegels w/ Clamshell, Reverse Clamshell, TA tightening. STG Duration 06/28/24 progressed 08/09/24. Detention Goal (LTG) Improve PF strength to decrease or eliminate urinary leakage with a cough or sneeze . LTG Duration 08/16/24 Two Impairment Urge urinary incontinence Short Term Goal (STG) Pt will be able to perform deep breathing properly for downtraining of sympathetic system with a strong urge. 05/13/24: HEP Deep breathing handout issued. 05/20/24: Pt able to perform properly in supine. 06/10/24: Sitting, pt demonstrates good abdominal mvmt to start, then upper chest maximally kicks in. STG Duration 06/07/24 progressed 05/20/24 (need to do sitting) Airport Representative Goal (LTG) Pt will be able to make it to bathroom in the presence of a strong urge. 05/13/24: Pt this past week has made it to bathroom at home w/o leaking, but rushed through undreassing. Not able to make it at grocery store. LTG Duration 08/16/24 05/13/24: Goal partially met, makes it to bathroom in [place] Impairment Pt lacks an independent self care HEP. Short Term Goal (STG) Pt educated in proper transfers to lessen core abdominal pressure. 06/10/24: Pt educated in transfers to lessen core pressure. STG Duration 06/07/24 (06/10/24: MET GOAL) Detention Goal (LTG) Pt will be independent in a self care HEP for PF care, PF/ Hip ROM (PF w/gentle reverse Kegel for relaxation after contraction) ROM/strengthening . 05/06/24: Self care HEP: Urge deference technique. 05/13/24: HEP: Deep Breathing. 05/20/24: HEP: Kegels: Quick , Long Hold, Aggrevator. 06/10/24: Handouts: Bladder Retraining & Body mechanics training. 07/29/24: I/S pt in use of Cold pack for LBP and not to use TNS unit. LTG Duration 08/16/24 progressed 07/30/24 Assessment Summary Assessment Pt is 23 wks (due date 11/28/24) w/12 yr history of overactive bladder and additionally diagnosed with mixed urinary incontinence in abscence of bowel dysfunction; with decreasd L hip IR/trunk R SB mobility. Today she responded well to STM to LB with reported decrease in pain . Urinary leakage has been more with progressing and worsening of back pain. Physical Therapy Plan Frequency and Duration Frequency of Treatment 1x/Week Duration of treatment (weeks) 14 Plan of Care Start Date 05/06/24 Plan of Care End Date 08/16/24 Next Visit Focus/Plan Next Note Type Treatment Note Next Visit Plan Next: Visual assess of PF, and assess if pt able to actually do a PF contraction or if she just feels she is doing one. If too tight, add Reverse Kegel. Ther Ex: Improve hip R IR, L ER and trunk R SB mobility. Cont Kegel/?Reverse Kegel, PF/ core strengthening. Educate/discuss proper sit to stand, and review moving in bed (log roll) using breathwork and core/PF stabilization (for proper abdominal pressure system), & positioning (sit, stand). Manual: R lower abdominal pain possibly related to the round ligament. POC: Pt education , self care management, manual therapy, biofeedback with external sensors (LB/PF), therapeutic exercises, therapeutic activities, and neuromuscular reeducation.
--- NOTE | 2024-08-06 17:02 | PT.OTN ---
Current Diagnoses Pain in right hip (08/06/24) Stiffness of unspecified hip, not elsewhere classified (08/06/24) Overactive bladder (08/06/24) Mixed incontinence (08/06/24) Physical Therapy Treatment Note PT-OP-A Visit Information Start: 04/30/24 18:31 Freq: Status: Active Protocol: Document 08/06/24 12:18 LRN (Rec: 08/06/24 13:02 LRN [id number]) Out-Patient Physical Therapy Visit Information Visit Information Visit Type Treatment Note Visit Start Time 12:18 Visit Stop Time 13:00 Visit Number 7 Evaluation Information Evaluation Date 05/06/24 Precautions Precautions Currently reported to be 11 wk , depression, thyroid disorder. Difficult lying on back. PT-OP-B Current Condition Start: 04/30/24 18:31 Freq: Status: Active Protocol: Document 05/06/24 09:47 LRN (Rec: 05/06/24 11:28 LRN [id number]) Current Condition History of Current Condition Onset Date 12 yrs ago. Current Complaints Overactive ex's and mixed incontinence. History of Current Condition Pt reports currently 11 wks . States she has had diagnosis of overactive bladder for 12 yrs. In was prescribed medicine for UTI, but never told she had and overactvie bladder, so symptoms of UTI never went away. Pt retired from the in 2011. Last year she learned about urology and received treatment from urology clinic that gave her strategies and physical therapy from Aug to September of 2023 in [place], [place] and learned she had mixed urinary incontinence. She moved to [place], [place] in November 2023 with spouse who is in the . She reports being given ex's and handouts, and was taught rocking of body to relax her PF and did biofeedback with pads. States she was given a TNS unit, that was all lost in her move along with all her ex's and handouts. States, if recommended, then she will get a new TNS unit. States she knows her pelvic floor R side was more sensitive than the L side. She has been worried because in the last 2 months she has been waking with dampness and has smell of urine in her underwear. She has urinary leakage with a cough sneeze, sit<>stand, and with a strong urge. She complains of intermittent pain in her R anterior hip. Prior Treatments and Tests Kegel ex's, bridge with Kegels and open wall stretches. Uses pressure points, in lower leg and hand to help control her urinary urges. Developmental History Developmental History 1 daughter - 9 yrs old, vaginal . Treatment Goals Patient/Caregiver Goals Pt goals: - 2 hrs between voids - Decrease urinary leakage Cough, sneeze. - Be able to make it to bathroom with strong urge. - HEP Personal Factors Other Personal Factors That May Effect Chronicity of overactive Therapy/Recovery bladder, Pt reported PTSD, Pt reported 11 wks , Depression, Thyroid disorder. PT-OP-C Subjective Start: 04/30/24 18:31 Freq: Status: Active Protocol: Document 08/06/24 12:18 LRN (Rec: 08/06/24 13:02 LRN [id number]) OP-PT Subjective Patient Comments Patient Comments Doing ex's. Tired because doing things to prepare for baby. Lower back is pain is sore. PT-OP-I Pelvic Floor Start: 04/30/24 18:31 Freq: Status: Active Protocol: Document 08/06/24 12:18 LRN (Rec: 08/06/24 16:43 LRN [id number]) Pelvic Floor Assessment Comments Pelvic Floor Comments Visualized PF contraction and relaxation with through vaginal opening. PT-OP-J Posture/Palpation/Skin Start: 04/30/24 18:31 Freq: Status: Active Protocol: Document 05/06/24 09:47 LRN (Rec: 05/06/24 11:28 LRN [id number]) Posture Evaluation Position Standing Head/C-Spine Posture Forward Head L-Spine Posture Increased Lordosis Knee Posture (L) Genu Valgus,(R) Genu Valgus Ankle/Foot Posture (L) Calcaneal Eversion,(R) Calcaneal Eversion Comments Posture Comments Dowagers Hump. PT-OP-K Range of Motion Start: 04/30/24 18:31 Freq: Status: Active Protocol: Document 05/06/24 09:47 LRN (Rec: 05/06/24 11:28 LRN [id number]) Lumbar Spine Range of Motion Lumbar Spine Active Degrees Testing Position Standing Flexion 120 Extension 20 Rotation Left 45 Rotation Right 45 Lateral Flexion Left 25 Lateral Flexion Right 17 ROM Limitations Soft Tissue Tightness Hip Goniometric Range of Motion Hip Right Passive Testing Position Supine Abduction 40 Internal Rotation 35 External Rotation 75 Left Passive Testing Position Supine Abduction 40 Internal Rotation 45 External Rotation 65 PT-OP-M Strength Start: 04/30/24 18:31 Freq: Status: Active Protocol: Document 05/06/24 09:47 LRN (Rec: 05/06/24 11:28 LRN [id number]) Trunk Strength Trunk Manual Muscle Testing Core Stabilization Pt was able to stabilize her core with MMT of hip for flex, AB, AD; therefore core stability is good (minimally 4 /5). Pt demonstarted getting out of bed by a sit-up type motion with use of arms to help push into longsit. Hip Strength Hip Manual Muscle Testing Right Comments Strength is 5/5 except hip ext in prone not assessed due to pt condition. Left Comments Strength is 5/5 except hip ext in prone not assessed due to pt condition. PT-OP-Q Treatments Start: 04/30/24 18:31 Freq: Status: Active Protocol: Document 08/06/24 12:18 LRN (Rec: 08/06/24 13:02 LRN [id number]) Therapeutic Exercises Sitting Exercises Long Hold Contractions Sitting Exercise Name Long Hold kegel w/ball squeeze Reps/Minutes 10 SH/20 SR (doing hip IR) x 10 Quick Contractions Sitting Exercise Name Quick Kegels w/ball squeeze Reps/Minutes 2 SH/4 SR x 10 Other Exercises 4 pt Other Exercise Name Single arm lifts Side bilateral Reps/Minutes 5x Comments Cued to feel for upper back strengthening. Child's Pose Other Exercise Name Rock Back Reps/Minutes 3' Comments Extra time taken for positioning Manual Therapy Treatment Soft Tissue Mobilization Abdomen Body Location Gentle lower abdominal STM Mobilization Type Sustained Pressure Intensity/Depth Superficial Body Position Hooklying Comments Round lig and lower pelvis lift (broad lig) Low Back Body Location Low Back Mobilization Type Strumming,Sustained Pressure Intensity/Depth Moderate Body Position On preg pillow Comments Partial release on L lumbar paraspinals. PT-OP-T Assessment and Plan Start: 04/30/24 18:31 Freq: Status: Active Protocol: Document 08/06/24 12:18 LRN (Rec: 08/06/24 13:02 LRN [id number]) Physical Therapy Assessment Goals Three Impairment Stress urinary incontinence. Short Term Goal (STG) Pt will be educated in PF strengthening with progressing limitations. 05/20/24: HEP: Kegels: Quick , Long Hold, Aggrevator. 07/30/24: HEP: Kegels w/ Clamshell, Reverse Clamshell, TA tightening. STG Duration 06/28/24 progressed 08/09/24. Inside Sales Trainer Goal (LTG) Improve PF strength to decrease or eliminate urinary leakage with a cough or sneeze . LTG Duration 08/16/24 Two Impairment Urge urinary incontinence Short Term Goal (STG) Pt will be able to perform deep breathing properly for downtraining of sympathetic system with a strong urge. 05/13/24: HEP Deep breathing handout issued. 05/20/24: Pt able to perform properly in supine. 06/10/24: Sitting, pt demonstrates good abdominal mvmt to start, then upper chest maximally kicks in. 08/06/24: Pt able to perform a deep breath in sitting. STG Duration 06/07/24 (08/06/24: MET GOAL ) Inside Sales Trainer Goal (LTG) Pt will be able to make it to bathroom in the presence of a strong urge. 05/13/24: Pt this past week has made it to bathroom at home w/o leaking, but rushed through undreassing. Not able to make it at grocery store. LTG Duration 08/16/24 05/13/24: Goal partially met, makes it to bathroom in [place] Impairment Pt lacks an independent self care HEP. Short Term Goal (STG) Pt educated in proper transfers to lessen core abdominal pressure. 06/10/24: Pt educated in transfers to lessen core pressure. STG Duration 06/07/24 (06/10/24: MET GOAL) Inside Sales Trainer Goal (LTG) Pt will be independent in a self care HEP for PF care, PF/ Hip ROM (PF w/gentle reverse Kegel for relaxation after contraction) ROM/strengthening . 05/06/24: Self care HEP: Urge deference technique. 05/13/24: HEP: Deep Breathing. 05/20/24: HEP: Kegels: Quick , Long Hold, Aggrevator. 06/10/24: Handouts: Bladder Retraining & Body mechanics training. 07/29/24: I/S pt in use of Cold pack for LBP and not to use TNS unit. 08/06/24: I/S pt in 4pt single arm lifts for UB strengthening LTG Duration 08/16/24 progressed 08/06/24 Assessment Summary Assessment Pt is 24 wks (due date 11/28/24) w/12 yr history of overactive bladder and additionally diagnosed with mixed urinary incontinence in abscence of bowel dysfunction; with decreasd L hip IR/trunk R SB mobility. Today she visually demonstrates ability to perform a PF contraction followed by relaxation; therefore reverse kegels not needed. She had a + response to STM, felt belly more in alignement after treatment and less lateral lower abdominal pain. Physical Therapy Plan Frequency and Duration Frequency of Treatment 1x/Week Duration of treatment (weeks) 14 Plan of Care Start Date 05/06/24 Plan of Care End Date 08/16/24 Next Visit Focus/Plan Next Note Type Treatment Note Next Visit Plan Next: DC to HEP as she wants to keep insurance covered visits for post . Add HEP of hip L IR, and trunk R SB stretch and Educate/discuss proper sit to stand, standing Kegels. HEP: review as needed HEP of PF/core strengthening. Review moving in bed (log roll ) using breathwork and core/PF stabilization (for proper abdominal pressure system). Manual as needed. POC: Pt education, self care management, manual therapy, therapeutic exercises, therapeutic activities
--- NOTE | 2024-12-03 13:51 | PT.OPDS ---
Current Diagnoses Pain in right hip (08/06/24) Stiffness of unspecified hip, not elsewhere classified (08/06/24) Overactive bladder (08/06/24) Mixed incontinence (08/06/24) Visit Care Team Role Provider Type ANAM Urias Attending Provider Non-Staff Family Provider Primary Care Provider Referring Provider Specialty: Family Practice Address: [address] [place] [address], [place], [address] Email: Visit Number Visit Number 7 Discharge Summary PT-OP-B Current Condition Start: 04/30/24 18:31 Freq: Status: Active Protocol: Document 05/06/24 09:47 LRN (Rec: 05/06/24 11:28 LRN [id number]) Current Condition History of Current Condition Onset Date 12 yrs ago. Current Complaints Overactive ex's and mixed incontinence. History of Current Condition Pt reports currently 11 wks . States she has had diagnosis of overactive bladder for 12 yrs. In was prescribed medicine for UTI, but never told she had and overactvie bladder, so symptoms of UTI never went away. Pt retired from the in 2011. Last year she learned about urology and received treatment from urology clinic that gave her strategies and physical therapy from Aug to September of 2023 in [place], [place] and learned she had mixed urinary incontinence. She moved to [place], [place] in November 2023 with spouse who is in the . She reports being given ex's and handouts, and was taught rocking of body to relax her PF and did biofeedback with pads. States she was given a TNS unit, that was all lost in her move along with all her ex's and handouts. States, if recommended, then she will get a new TNS unit. States she knows her pelvic floor R side was more sensitive than the L side. She has been worried because in the last 2 months she has been waking with dampness and has smell of urine in her underwear. She has urinary leakage with a cough sneeze, sit<>stand, and with a strong urge. She complains of intermittent pain in her R anterior hip. Prior Treatments and Tests Kegel ex's, bridge with Kegels and open wall stretches. Uses pressure points, in lower leg and hand to help control her urinary urges. Developmental History Developmental History 1 daughter - 9 yrs old, vaginal . Treatment Goals Patient/Caregiver Goals Pt goals: - 2 hrs between voids - Decrease urinary leakage Cough, sneeze. - Be able to make it to bathroom with strong urge. - HEP Personal Factors Other Personal Factors That May Effect Chronicity of overactive Therapy/Recovery bladder, Pt reported PTSD, Pt reported 11 wks , Depression, Thyroid disorder. PT-OP-C Subjective Start: 04/30/24 18:31 Freq: Status: Active Protocol: Document 08/06/24 12:18 LRN (Rec: 08/06/24 13:02 LRN [id number]) OP-PT Subjective Patient Comments Patient Comments Doing ex's. Tired because doing things to prepare for baby. Lower back is pain is sore. PT-OP-I Pelvic Floor Start: 04/30/24 18:31 Freq: Status: Active Protocol: Document 08/06/24 12:18 LRN (Rec: 08/06/24 16:43 LRN [id number]) Pelvic Floor Assessment Comments Pelvic Floor Comments Visualized PF contraction and relaxation with through vaginal opening. PT-OP-J Posture/Palpation/Skin Start: 04/30/24 18:31 Freq: Status: Active Protocol: Document 05/06/24 09:47 LRN (Rec: 05/06/24 11:28 LRN [id number]) Posture Evaluation Position Standing Head/C-Spine Posture Forward Head L-Spine Posture Increased Lordosis Knee Posture (L) Genu Valgus,(R) Genu Valgus Ankle/Foot Posture (L) Calcaneal Eversion,(R) Calcaneal Eversion Comments Posture Comments Dowagers Hump. PT-OP-K Range of Motion Start: 04/30/24 18:31 Freq: Status: Active Protocol: Document 05/06/24 09:47 LRN (Rec: 05/06/24 11:28 LRN [id number]) Lumbar Spine Range of Motion Lumbar Spine Active Degrees Testing Position Standing Flexion 120 Extension 20 Rotation Left 45 Rotation Right 45 Lateral Flexion Left 25 Lateral Flexion Right 17 ROM Limitations Soft Tissue Tightness Hip Goniometric Range of Motion Hip Right Passive Testing Position Supine Abduction 40 Internal Rotation 35 External Rotation 75 Left Passive Testing Position Supine Abduction 40 Internal Rotation 45 External Rotation 65 PT-OP-M Strength Start: 04/30/24 18:31 Freq: Status: Active Protocol: Document 05/06/24 09:47 LRN (Rec: 05/06/24 11:28 LRN [id number]) Trunk Strength Trunk Manual Muscle Testing Core Stabilization Pt was able to stabilize her core with MMT of hip for flex, AB, AD; therefore core stability is good (minimally 4 /5). Pt demonstarted getting out of bed by a sit-up type motion with use of arms to help push into longsit. Hip Strength Hip Manual Muscle Testing Right Comments Strength is 5/5 except hip ext in prone not assessed due to pt condition. Left Comments Strength is 5/5 except hip ext in prone not assessed due to pt condition. PT-OP-T Assessment and Plan Start: 04/30/24 18:31 Freq: Status: Active Protocol: Document 12/03/24 13:49 KJ (Rec: 12/03/24 13:51 KJ Laptop) Physical Therapy Assessment Goals Three Impairment Stress urinary incontinence. Short Term Goal (STG) Pt will be educated in PF strengthening with progressing limitations. 05/20/24: HEP: Kegels: Quick , Long Hold, Aggrevator. 07/30/24: HEP: Kegels w/ Clamshell, Reverse Clamshell, TA tightening. STG Duration 06/28/24 progressed 08/09/24. Spectroscopist Goal (LTG) Improve PF strength to decrease or eliminate urinary leakage with a cough or sneeze . LTG Duration 08/16/24 Two Impairment Urge urinary incontinence Short Term Goal (STG) Pt will be able to perform deep breathing properly for downtraining of sympathetic system with a strong urge. 05/13/24: HEP Deep breathing handout issued. 05/20/24: Pt able to perform properly in supine. 06/10/24: Sitting, pt demonstrates good abdominal mvmt to start, then upper chest maximally kicks in. 08/06/24: Pt able to perform a deep breath in sitting. STG Duration 06/07/24 (08/06/24: MET GOAL ) Spectroscopist Goal (LTG) Pt will be able to make it to bathroom in the presence of a strong urge. 05/13/24: Pt this past week has made it to bathroom at home w/o leaking, but rushed through undreassing. Not able to make it at grocery store. LTG Duration 08/16/24 05/13/24: Goal partially met, makes it to bathroom in [place] Impairment Pt lacks an independent self care HEP. Short Term Goal (STG) Pt educated in proper transfers to lessen core abdominal pressure. 06/10/24: Pt educated in transfers to lessen core pressure. STG Duration 06/07/24 (06/10/24: MET GOAL) Senior Care Goal (LTG) Pt will be independent in a self care HEP for PF care, PF/ Hip ROM (PF w/gentle reverse Kegel for relaxation after contraction) ROM/strengthening . 05/06/24: Self care HEP: Urge deference technique. 05/13/24: HEP: Deep Breathing. 05/20/24: HEP: Kegels: Quick , Long Hold, Aggrevator. 06/10/24: Handouts: Bladder Retraining & Body mechanics training. 07/29/24: I/S pt in use of Cold pack for LBP and not to use TNS unit. 08/06/24: I/S pt in 4pt single arm lifts for UB strengthening LTG Duration 08/16/24 progressed 08/06/24 Progress Towards Goals Progress Towards Goals Progressing Toward Goals Physical Therapy Plan Discharge Physical Therapy Discharge Reasons Patient Request Discharge Comments Initial evaluation 05/06/24 with 6 follow up visits attended, the last on 08/06/24. Pt cancelled subsequent appointments and has not rescheduled, therefore she will be discharged.
== END 2024-12-03 14:34 | disposition home or self-care (01) ==
LOC: PHYS 12:15
PROVIDERS: Family Provider Nurse Practitioner Family; PCP Nurse Practitioner Family; Referring Provider Nurse Practitioner Family; Visit Provider Nurse Practitioner Family
DX: N32.81 Overactive bladder (principal); N39.46 Mixed incontinence; M25.659 Stiffness of unspecified hip, not elsewhere classified; M25.551 Pain in right hip
CPT/HCPCS: 97110; 97140; 97162; 97530; 97535